=== PATIENT | female | born 1990 | race Caucasian/White ===

== ENCOUNTER 2020-11-24 07:16 | Inpatient (IN) ==
[2020-11-24] MEDS ORDERED: PENICILLIN G POTASSIUM 6 MU in DEXTROSE 5% 250 ML IV STA (08:01)
[2020-11-24] MEDS ORDERED: OXYTOCIN 30 UNITS/500 ML BAG IV PRN ×2 (08:01→16:29)
[2020-11-24] MEDS ORDERED: PENICILLIN G POTASSIUM 3 MU in DEXTROSE 5% 100 ML IV PRN (08:01)
[2020-11-24] MEDS: LACTATED RINGER'S 1,000 ML IV PRN ×2 (08:16→09:00)
[2020-11-24 08:20] LABS: Hematocrit (blood only) 36.3 % (37-47); Hemoglobin 12.2 g/dL (12.0-16.0); Mean Corpuscular Volume 89.2 fL (80-100); Mean Platelet Volume 9.6 fL (7.4-10.4); Platelet Count 400 K/uL (130-400); RDW Standard Deviation 42.6 fL (36.4-46.3); Red Blood Count 4.07 M/uL (4.2-5.4); White Blood Count 16.54 K/uL (4.8-10.8)
[2020-11-24 08:23] LABS: Mean Corpuscular Hgb Conc 33.6 g/dL (32-36)
[2020-11-24] MEDS ORDERED: fentaNYL citrate 100 MCG/2 ML VIAL ONE (08:31)
[2020-11-24] MEDS ORDERED: ePHEDrine sulfate 50 MG/ML AMP ONE (08:31)
[2020-11-24] MEDS ORDERED: BUPIVACAINE 0.25% 30 ML VIAL ONE (08:31)
[2020-11-24] MEDS ORDERED: fentaNYL 2MCG/ML ROPIVACAINE 1.25MG/ML 100 ML BAG EPI ONE (08:31)
[2020-11-24] MEDS ORDERED: SODIUM CHLORIDE 0.9% INJ 10 ML VIAL ONE (08:31)
[2020-11-24] MEDS ORDERED: ePHEDrine sulfate 50 MG/ML AMP IV PRN (08:47)
[2020-11-24] MEDS ORDERED: NALOXONE HCL 0.4 MG/1 ML VIAL/CARP IV PRN (08:47)
[2020-11-24] MEDS ORDERED: fentaNYL 2MCG/ML ROPIVACAINE 1.25MG/ML 100 ML BAG EPI PRN (08:47)
[2020-11-24] MEDS ORDERED: diphenhydrAMINE 50 MG/ML VIAL IV PRN (08:47)
[2020-11-24] MEDS ORDERED: ONDANSETRON INJ 2 MG/ML 2 ML VIAL IV PRN (08:47)
[2020-11-24] MEDS ORDERED: NALOXONE HCL 1 MG in SODIUM CHLORIDE 0.9% 1000ML 1,000 ML IV PRN (08:47)
--- NOTE | 2020-11-24 08:56 | Anesthesiology Consultation ---
Date of Service November 24, 2020 Assessment & Plan Chart Review Chart Review: Patient NOT seen in Pre Admission Testing and Acceptable Risk for Labor Epidural Consults Requested none ASA ASA2 Proposed Anesthesia Anesthesia Type: Labor Epidural and CSE Risk / Benefits Reviewed With: PT / POA / Parent / Guardian, Accepts Plan and Informed Consent Obtained History Height/Weight Height: 5 ft 5 in Weight: 107.048 kg Allergies Allergy/AdvReac Type Severity Reaction Status Date / Time oxycodone Allergy Hives Verified 11/24/20 07:45 Medications Home Medications Medication Instructions Recorded Confirmed Last Taken fluticasone propionate [Flonase] 2 spray INTRANASAL PRN 11/24/20 Unknown prenat.vits,richard,wwt-vals-iraki 1 tab PO DAILY 11/24/20 11/24/20 11/24/20 [ Vitamin] Active Medications Generic Name Dose Route Start Last Admin Trade Name Freq PRN Reason Stop Dose Admin Penicillin G Potassium 6 mu/ 262 mls @ 262 mls/hr 11/24/20 08:01 11/24/20 08:29 Dextrose IV 11/24/20 09:00 262 mls/hr NOW STA Administration Lactated Ringer's 1,000 mls @ 125 mls/hr 11/24/20 08:01 11/24/20 08:16 Lr IV 11/26/20 08:00 999 mls/hr .Q8H PRN Administration L&D Protocol Protocol NPO Date Last Intake of Fluids: 11/24/20 Time Last Intake of Fluids: 08:00 Date Last Intake of Solids: 11/23/20 Time Last Intake of Solids: 21:00 Past Medical History Medical History Abnormal Pap smear of cervix Obesity Exercise / Class Metabolic Activity II 4-5 Yardwork/Stairs/Walk up hill Past Surgical History Surgical History History of cholecystectomy History of colposcopy S/P LASIK surgery of both eyes Past Anesthesia History No Hx of Anesthesia Complications and No Family Hx of Anesthesia Complications Social History Smoking Status: Never smoker Hx Alcohol Use: No Hx Substance Use: No Review of Systems no chest pain or sob Physical Exam Vital Signs Last Vital Signs Temp 36.6 C 11/24/20 07:46 Pulse 89 11/24/20 08:50 Resp 20 11/24/20 07:46 BP 175/85 H 11/24/20 08:49 Pulse Ox 98 11/24/20 08:50 ENMT Mouth: no TMJ abnormality Thyromental Distance: > or= 3.5 Finger Breadths Mallampati Class: II Neck normal visual inspection Respiratory normal respiratory effort Auscultation: lungs clear to auscultation bilaterally Cardiovascular Rate/Rhythm: regular rate and regular rhythm Musculoskeletal Spine: normal cervical ROM Neurologic moves all extremities Psychiatric Orientation: alert and oriented x 3 Testing Laboratory Results 11/24/20 08:10
--- NOTE | 2020-11-24 09:06 | Obstetrical Progress Note ---
Date of Service November 24, 2020 Assessment & Plan Admission and Anticipated Discharge Date Admission Date: November 24, 2020 Physical Exam Physical Exam: Admit Note 30 F P0000 at 40 weeks with onset of labor this morning who was scheduled for induction today. Cervix 6/100/-1/vertex/intact. FHT Cat 1. GBS is positive. Patient requesting epidural for her labor. Will start antibiotics. Results & Data ([facility]) Vital Signs (Past 12 Hours) Vital Signs Temp Pulse Resp BP Pulse Ox 11/24/20 09:00 106 H 100 11/24/20 08:55 105 H 100 11/24/20 08:50 89 98 11/24/20 08:49 90 175/85 H 11/24/20 08:45 89 100 11/24/20 08:40 140 H 100 11/24/20 08:35 92 H 99 11/24/20 08:33 88 157/88 H 11/24/20 08:30 93 H 99 11/24/20 08:25 107 H 99 11/24/20 08:20 118 H 99 11/24/20 08:19 86 145/85 H 11/24/20 08:15 89 97 11/24/20 07:46 36.6 C 20 11/24/20 07:44 84 159/79 H 11/24/20 07:40 20 11/24/20 07:39 88 170/82 H 11/24/20 07:27 94 H 167/83 H
--- NOTE | 2020-11-24 10:43 | Obstetrical Progress Note ---
Date of Service November 24, 2020 Assessment & Plan Admission and Anticipated Discharge Date Admission Date: November 24, 2020 Physical Exam Genitourinary: Manual OB Exam: + cervical dilation 7 cm, + cervical effacement 100%, + station -1 and + amniotic fluid clear OB Exam Monitor Tracing: + external FHT monitor used, + external uterine monitor used, + category I and + normal FHT variability AROM with Amni-hook clear fluid Results & Data ([facility]) Vital Signs (Past 12 Hours) Vital Signs Temp Pulse Resp BP Pulse Ox 11/24/20 10:40 104 H 99 11/24/20 10:39 102 H 176/82 H 11/24/20 10:35 100 H 186/86 H 100 11/24/20 10:30 94 H 98 11/24/20 10:29 86 154/87 H 11/24/20 10:25 91 H 148/86 H 99 11/24/20 10:20 84 99 11/24/20 10:19 84 144/79 H 11/24/20 10:15 95 H 139/84 100 11/24/20 10:10 94 H 99 11/24/20 10:09 90 162/81 H 11/24/20 10:05 86 170/84 H 98 11/24/20 10:00 87 20 100 11/24/20 09:59 86 169/79 H 11/24/20 09:55 102 H 178/90 H 99 11/24/20 09:50 99 H 100 11/24/20 09:49 95 H 149/73 H 11/24/20 09:45 95 H 99 11/24/20 09:44 90 166/87 H 11/24/20 09:40 93 H 146/93 H 100 11/24/20 09:35 105 H 100 11/24/20 09:34 112 H 163/83 H 11/24/20 09:30 109 H 16 169/91 H 100 11/24/20 09:25 98 H 146/112 H 99 11/24/20 09:20 95 H 100 11/24/20 09:18 118 H 168/81 H 11/24/20 09:16 96 H 167/76 H 11/24/20 09:15 101 H 100 11/24/20 09:14 93 H 169/76 H 11/24/20 09:12 91 H 157/73 H 11/24/20 09:10 86 161/76 H 100 11/24/20 09:08 99 H 154/83 H 11/24/20 09:06 100 H 159/80 H 11/24/20 09:05 96 H 99 11/24/20 09:00 106 H 20 100 11/24/20 08:55 105 H 100 11/24/20 08:50 89 98 11/24/20 08:49 90 175/85 H 11/24/20 08:45 89 100 11/24/20 08:40 140 H 100 11/24/20 08:35 92 H 99 11/24/20 08:33 88 157/88 H 11/24/20 08:30 93 H 22 99 11/24/20 08:25 107 H 99 11/24/20 08:20 118 H 99 11/24/20 08:19 86 145/85 H 11/24/20 08:15 89 97 11/24/20 08:01 22 11/24/20 07:46 36.6 C 20 11/24/20 07:44 84 159/79 H 11/24/20 07:40 20 11/24/20 07:39 88 170/82 H 11/24/20 07:27 94 H 167/83 H
--- NOTE | 2020-11-24 16:15 | Delivery Summary ---
Vaginal Delivery Summary Date of Service November 24, 2020 Vaginal Delivery Summary Delivery Note live female over intact perineum [place] with nuchal cord x1 reduced at delivery. Apgars 8/9 weight pending. Cord blood obtained followed by spontaneous delivery of intact perineum. First degree tear repaired with 3/0 Vicryl suture. Final sponge needle and instrument count are correct. EBL 150 ml. Mom and baby stable.
[2020-11-24] MEDS ORDERED: bisacodyL 10 MG SUPP PR PRN (16:29)
[2020-11-24] MEDS ORDERED: HYDROCORTISONE ACETATE 25 MG SUPP PR PRN (16:29)
[2020-11-24] MEDS ORDERED: DIPHTHERIA/TETANUS/PERTUSSIS 0.5 ML SYR/VIAL IM ONE (16:29)
[2020-11-24] MEDS ORDERED: BENZOCAINE 20% AER SPR 82.5 GM CAN EXT PRN (16:29)
[2020-11-24] MEDS ORDERED: SUPERCREAM 0.870% 15 GM JAR EXT PRN (16:29)
[2020-11-24] MEDS ORDERED: ACETAMINOPHEN 325 MG TAB PO PRN (16:29)
--- NOTE | 2020-11-24 17:50 | Anesthesia Procedure Note ---
Date of Service November 24, 2020 Anesthesia Post Epidural Note Vital Signs Vital Signs: Temp Pulse Resp BP Pulse Ox 37.6 C H 111 H 18 142/77 H 99 11/24/20 16:11 11/24/20 17:41 11/24/20 17:26 11/24/20 17:41 11/24/20 16:10 Notes Mental Status: alert / awake / arousable and participated in evaluation Nausea / Vomiting: adequately controlled Pain: adequately controlled Airway Patency, RR, SpO2: stable & adequate BP & HR: stable & adequate Hydration State: stable & adequate Neuraxial Anesthesia: was administered and sensory block is resolving Anesthetic Complications: no major complications apparent and Pt Satisfied with anesthetic care Epidural: Removed without complications and With tip intact
[2020-11-24] MEDS: IBUPROFEN 600 MG TAB PO PRN (18:00)
[2020-11-24] MEDS: DOCUSATE SODIUM 100 MG CAP PO SCH (20:54)
[2020-11-25] MEDS: IBUPROFEN 600 MG TAB PO PRN ×4 (00:13→19:56)
[2020-11-25 06:24] LABS: Hematocrit (blood only) 31.1 % (37-47); Hemoglobin 10.5 g/dL (12.0-16.0); Mean Corpuscular Hemoglobin 29.7 pg (25-34); Mean Corpuscular Hgb Conc 33.8 g/dL (32-36); Mean Corpuscular Volume 87.9 fL (80-100); Mean Platelet Volume 9.5 fL (7.4-10.4); Platelet Count 342 K/uL (130-400); RDW Coefficient of Variation 13.2 % (11.5-14.5); RDW Standard Deviation 42.8 fL (36.4-46.3); Red Blood Count 3.54 M/uL (4.2-5.4); White Blood Count 21.86 K/uL (4.8-10.8)
[2020-11-25] MEDS: DOCUSATE SODIUM 100 MG CAP PO SCH ×2 (08:24→20:22)
[2020-11-25] MEDS: PRENATAL VITAMIN 1 TAB PO SCH (08:24)
[2020-11-25] MEDS: FERROUS SULFATE 325 MG TAB PO SCH (08:24)
--- NOTE | 2020-11-25 08:33 | Obstetrical Progress Note ---
Date of Service November 25, 2020 Assessment & Plan Admission and Anticipated Discharge Date Admission Date: November 24, 2020 Subjective PPD#1 doing well tolerating diet passing gas out of bed Physical Exam Constitutional: WD/WN, vitals as above well developed and comfortable fundus firm abdomen soft \no edema neg Tg's tent d/c in AM Results & Data ([facility]) Vital Signs (Past 12 Hours) Vital Signs Temp Pulse Resp BP 11/25/20 05:15 36.8 C 83 16 124/78 11/24/20 23:50 36.9 C 90 16 131/76 Laboratory Results 11/24/20 11/24/20 11/24/20 08:10 08:10 08:10 WBC 16.54 H RBC 4.07 L Hgb 12.2 Hct 36.3 L MCV 89.2 MCH 30.0 MCHC 33.6 RDW Std Deviation 42.6 RDW Coeff of Krishna 13.0 Plt Count 400 MPV 9.6 COVID-19 Eval [facility] SARS-CoV-2, RNA, NAAT NEGATIVE 11/25/20 06:07 WBC 21.86 H RBC 3.54 L Hgb 10.5 L Hct 31.1 L MCV 87.9 MCH 29.7 MCHC 33.8 RDW Std Deviation 42.8 RDW Coeff of Krishna 13.2 Plt Count 342 MPV 9.5 COVID-19 Eval Order SARS-CoV-2, RNA, NAAT
[2020-11-25] MEDS ORDERED: NON-FORMULARY MEDICATION (Prenat.Vits,Cal,Min-Iron-Folic Tablet) PO SCH (09:00)
[2020-11-25] MEDS ORDERED: bisacodyL 5 MG TABEC PO SCH (20:00)
[2020-11-26 06:14] LABS: Hemoglobin 10.5 g/dL (12.0-16.0)
--- NOTE | 2020-11-26 07:43 | Obstetrical Progress Note ---
Date of Service November 26, 2020 Assessment & Plan Admission and Anticipated Discharge Date Admission Date: November 24, 2020 Subjective Patient is seen and examined. She feels well, no complaints. Desires d/c today. Ambulating without dizziness Voiding without difficulty Tolerating regular diet with out N&V Bleeding is minimal No fever/ chills/ CP/ SOB/ N&V/ Leg pain Breast feeding without problems Vital Signs Temp Pulse Resp BP 11/25/20 23:20 36.7 C 112 H 18 143/87 H 11/25/20 20:20 36.7 C 109 H 18 140/89 11/25/20 15:08 36.7 C 89 16 147/87 H 11/25/20 12:24 36.9 C 81 16 124/72 Lab Results 11/24/20 11/24/20 11/24/20 Range/Units 08:10 08:10 08:10 WBC 16.54 H (4.8-10.8) K/uL RBC 4.07 L (4.2-5.4) M/uL Hgb 12.2 (12.0-16.0) g/dL Hct 36.3 L (37-47) % MCV 89.2 (80-100) fL MCH 30.0 (25-34) pg MCHC 33.6 (32-36) g/dL RDW Std Deviation 42.6 (36.4-46.3) fL RDW Coeff of Krishna 13.0 (11.5-14.5) % Plt Count 400 (130-400) K/uL MPV 9.6 (7.4-10.4) fL COVID-19 Eval Order Covid19 [facility] SARS-CoV-2, RNA, NAAT NEGATIVE (NEGATIVE) 11/25/20 11/26/20 Range/Units 06:07 05:59 WBC 21.86 H (4.8-10.8) K/uL RBC 3.54 L (4.2-5.4) M/uL Hgb 10.5 L 10.5 L (12.0-16.0) g/dL Hct 31.1 L 32.0 L (37-47) % MCV 87.9 (80-100) fL MCH 29.7 (25-34) pg MCHC 33.8 (32-36) g/dL RDW Std Deviation 42.8 (36.4-46.3) fL RDW Coeff of Krishna 13.2 (11.5-14.5) % Plt Count 342 (130-400) K/uL MPV 9.5 (7.4-10.4) fL COVID-19 Eval Order SARS-CoV-2, RNA, NAAT (NEGATIVE) Lab Results 11/24/20 11/24/20 11/24/20 Range/Units 08:10 08:10 08:10 WBC 16.54 H (4.8-10.8) K/uL RBC 4.07 L (4.2-5.4) M/uL Hgb 12.2 (12.0-16.0) g/dL Hct 36.3 L (37-47) % MCV 89.2 (80-100) fL MCH 30.0 (25-34) pg MCHC 33.6 (32-36) g/dL RDW Std Deviation 42.6 (36.4-46.3) fL RDW Coeff of Krishna 13.0 (11.5-14.5) % Plt Count 400 (130-400) K/uL MPV 9.6 (7.4-10.4) fL Immature Gran % (Auto) % Neut % (Auto) % Lymph % (Auto) % [place] % (Auto) % Eos % (Auto) % Baso % (Auto) % Neut # (Auto) (1.4-6.5) K/uL Lymph # (Auto) (1.2-3.4) K/uL [place] # (Auto) (0.11-0.59) K/uL Eos # (Auto) (0-0.5) K/uL Baso # (Auto) (0-0.2) K/uL Immature Gran # (Auto) (0.00-0.02) K/uL Sodium (136-145) mmol/L Potassium (3.5-5.1) mmol/L Chloride (98-107) mmol/L Carbon Dioxide (21-32) mmol/L Anion Gap (3-11) BUN (7-18) mg/dl Creatinine (0.6-1.2) mg/dl Est Cr Clr Drug Dosing ml/min Est GFR ( Amer) ml/min Est GFR (Non-Af Amer) ml/min BUN/Creatinine Ratio (10-20) Glucose (70-99) mg/dl Calcium (8.5-10.1) mg/dl AST (15-37) U/L ALT (12-78) U/L Albumin (3.4-5.0) gm/dl COVID-19 Eval Order [facility] SARS-CoV-2, RNA, NAAT NEGATIVE (NEGATIVE) 11/25/20 11/26/20 11/26/20 Range/Units 06:07 05:59 07:44 WBC 21.86 H 14.52 H (4.8-10.8) K/uL RBC 3.54 L 3.49 L (4.2-5.4) M/uL Hgb 10.5 L 10.5 L 10.5 L (12.0-16.0) g/dL Hct 31.1 L 32.0 L 31.6 L (37-47) % MCV 87.9 90.5 (80-100) fL MCH 29.7 30.1 (25-34) pg MCHC 33.8 33.2 (32-36) g/dL RDW Std Deviation 42.8 44.5 (36.4-46.3) fL RDW Coeff of Krishna 13.2 13.6 (11.5-14.5) % Plt Count 342 383 (130-400) K/uL MPV 9.5 9.5 (7.4-10.4) fL Immature Gran % (Auto) 1.1 % Neut % (Auto) 71.8 % Lymph % (Auto) 17.9 % [place] % (Auto) 6.1 % Eos % (Auto) 2.8 % Baso % (Auto) 0.3 % Neut # (Auto) 10.43 H (1.4-6.5) K/uL Lymph # (Auto) 2.60 (1.2-3.4) K/uL [place] # (Auto) 0.88 H (0.11-0.59) K/uL Eos # (Auto) 0.40 (0-0.5) K/uL Baso # (Auto) 0.05 (0-0.2) K/uL Immature Gran # (Auto) 0.16 H (0.00-0.02) K/uL Sodium (136-145) mmol/L Potassium (3.5-5.1) mmol/L Chloride (98-107) mmol/L Carbon Dioxide (21-32) mmol/L Anion Gap (3-11) BUN (7-18) mg/dl Creatinine (0.6-1.2) mg/dl Est Cr Clr Drug Dosing ml/min Est GFR ( Amer) ml/min Est GFR (Non-Af Amer) ml/min BUN/Creatinine Ratio (10-20) Glucose (70-99) mg/dl Calcium (8.5-10.1) mg/dl AST (15-37) U/L ALT (12-78) U/L Albumin (3.4-5.0) gm/dl COVID-19 Eval Order SARS-CoV-2, RNA, NAAT (NEGATIVE) 11/26/20 Range/Units 07:46 WBC (4.8-10.8) K/uL RBC (4.2-5.4) M/uL Hgb (12.0-16.0) g/dL Hct (37-47) % MCV (80-100) fL MCH (25-34) pg MCHC (32-36) g/dL RDW Std Deviation (36.4-46.3) fL RDW Coeff of Krishna (11.5-14.5) % Plt Count (130-400) K/uL MPV (7.4-10.4) fL Immature Gran % (Auto) % Neut % (Auto) % Lymph % (Auto) % [place] % (Auto) % Eos % (Auto) % Baso % (Auto) % Neut # (Auto) (1.4-6.5) K/uL Lymph # (Auto) (1.2-3.4) K/uL [place] # (Auto) (0.11-0.59) K/uL Eos # (Auto) (0-0.5) K/uL Baso # (Auto) (0-0.2) K/uL Immature Gran # (Auto) (0.00-0.02) K/uL Sodium 141 (136-145) mmol/L Potassium 4.0 (3.5-5.1) mmol/L Chloride 112 H (98-107) mmol/L Carbon Dioxide 22 (21-32) mmol/L Anion Gap 7.0 (3-11) BUN 12 (7-18) mg/dl Creatinine 0.80 (0.6-1.2) mg/dl Est Cr Clr Drug Dosing 123.9 ml/min Est GFR ( Amer) 113.9 ml/min Est GFR (Non-Af Amer) 98.2 ml/min BUN/Creatinine Ratio 14.9 (10-20) Glucose 82 (70-99) mg/dl Calcium 8.7 (8.5-10.1) mg/dl AST 19 (15-37) U/L ALT 14 (12-78) U/L Albumin 2.3 L (3.4-5.0) gm/dl COVID-19 Eval Order SARS-CoV-2, RNA, NAAT (NEGATIVE) PE: General: Alert, orientedx3, NAD Abd: soft, NT, fundus firm, below Umbilicus Perineum intact, Lochia rubra minimal Ext; NT, no edema AP: 30 yo s/p , ppd# 2 VSS Afebrile doing well Mildly elevated BP's, asymptomatic, labs WNL WBCC elevated, will recheck_ came down Continue routine care All questions were answered D/C home , f/u in office Results & Data ([facility]) Vital Signs (Past 12 Hours) Vital Signs Temp Pulse Resp BP 11/25/20 23:20 36.7 C 112 H 18 143/87 H 11/25/20 20:20 36.7 C 109 H 18 140/89
[2020-11-26] MEDS: FERROUS SULFATE 325 MG TAB PO SCH (07:58)
[2020-11-26] MEDS: DOCUSATE SODIUM 100 MG CAP PO SCH (07:58)
[2020-11-26] MEDS: PRENATAL VITAMIN 1 TAB PO SCH (07:58)
[2020-11-26] MEDS: IBUPROFEN 600 MG TAB PO PRN (07:58)
[2020-11-26 08:04] LABS: Basophils # (auto) 0.05 K/uL (0-0.2); Basophils % (auto) 0.3 %; Eosinophils % (auto) 2.8 %; Hematocrit (blood only) 31.6 % (37-47); Hemoglobin 10.5 g/dL (12.0-16.0); Immature Granulocytes # (auto) 0.16 K/uL (0.00-0.02); Immature Granulocytes % (auto) 1.1 %; Lymphocytes % (auto) 17.9 %; Mean Corpuscular Hemoglobin 30.1 pg (25-34); Mean Corpuscular Hgb Conc 33.2 g/dL (32-36); Mean Corpuscular Volume 90.5 fL (80-100); Mean Platelet Volume 9.5 fL (7.4-10.4); Monocytes # (auto) 0.88 K/uL (0.11-0.59); Monocytes % (auto) 6.1 %; Neutrophils # (auto) 10.43 K/uL (1.4-6.5); Neutrophils % (auto) 71.8 %; Platelet Count 383 K/uL (130-400); RDW Coefficient of Variation 13.6 % (11.5-14.5); RDW Standard Deviation 44.5 fL (36.4-46.3); Red Blood Count 3.49 M/uL (4.2-5.4); White Blood Count 14.52 K/uL (4.8-10.8)
[2020-11-26 08:24] LABS: Albumin Level 2.3 gm/dl (3.4-5.0); BUN Creatinine Ratio 14.9 (10-20); Calcium 8.7 mg/dl (8.5-10.1); Creatinine Clr Calc Pharmacy 123.9 ml/min; Est GFR (African American) 113.9 ml/min; Est GFR (Non-African American) 98.2 ml/min
[2020-11-26 08:27] LABS: Albumin Globulin Ratio 0.6 (0.9-2); Bilirubin,Total 0.2 mg/dl (0.2-1); Globulin 3.6 gm/dl (2.5-4.0); Total Protein 5.9 gm/dl (6.4-8.2)
== END 2020-11-26 12:45 | disposition home or self-care (01) | DRG 807 ==
LOC: 4S1 07:16 → 4S2 18:40